=== PATIENT | male | born 2000 | race Caucasian/White ===

== ENCOUNTER 2025-09-11 01:02 | Emergency (ER) | payer SELFPAY ==
[2025-09-11] MEDS: Amoxicillin/Clavulanate K 875-125 MG Tab PO STA (01:26)
[2025-09-11 01:36] VITALS: BP 132/74; PULSE 84
[2025-09-11] MEDS: Ketorolac 30 MG/ML SDV IM ONE (02:00)
== END 2025-09-11 02:06 | disposition home or self-care (01) ==
LOC: CC.ED 01:02
DX: R55 Syncope and collapse (principal); K04.7 Periapical abscess without sinus; F17.200 Nicotine dependence, unspecified, uncomplicated; Z79.899 Other long term (current) drug therapy
CPT/HCPCS: 70450; 96372; 99284; A9270-GY; J1885